=== PATIENT | male | born 1945 | race Caucasian/White ===

== ENCOUNTER 2016-03-11 12:30 | Emergency (ER) | payer OTHER ==
[2016-03-11] MEDS ORDERED: Ibuprofen TAB* 600 MG PO ONE (13:14)
[2016-03-11] MEDS ORDERED: Tetan/Diph/Pertus SYR(Tdap)* 0.5 ML SYR(BOOSTRIX) use SYR IM ONE (13:24)
--- NOTE | 2016-03-11 13:51 | RAD ---
INDICATION: Laceration at level of head of second metacarpal. Assess for retained glass foreign body. COMPARISON: July 24, 2011 TECHNIQUE: AP, lateral, and oblique views LEFT hand. REPORT: Soft tissue swelling most prominent at the second finger. No conspicuous foreign body or subcutaneous emphysema evident. Negative for fracture or dislocation. 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 Subchondral cyst at the distal pole of the scaphoid. IMPRESSION: Soft tissue swelling most prominent at the second finger. No conspicuous foreign body evident.
[2016-03-11] MEDS ORDERED: Clindamycin CAP* 150 MG PO ONE (15:14)
[2016-03-11 15:38] VITALS: BP 129/87
--- NOTE | 2016-03-11 16:03 | ED ---
Laceration/Wound HPI - HPI Summary HPI Summary: Patient was trying to remove a rubber cork from an old wine bottle he wanted to recycle when the neck snapped and he cut the top of his left index finger at the proximal knuckle. He controlled bleeding with a bandage and noticed that he was now unable to extend the left index finger at the CMC joint. He has sensation in the joint. His tetanus is not up to date. - History of Current Complaint Stated Complaint: LT FINGER LAC Time Seen by Provider: 03/11/16 12:41 Hx Obtained From: Patient Mechanism of Injury: Sharp/Blunt Trauma Onset/Duration: Sudden Onset Aggravating: Movement Alleviating: Nothing Timing: Constant Onset Severity: Severe Current Severity: Mild Pain Intensity: 0 Pain Scale Used: 0-10 Numeric Associated Signs & Symptoms: Pain Related Hx: Dominant Hand (Right) - Allergy/Home Medications Allergies/Adverse Reactions: Allergies Allergy/AdvReac Type Severity Reaction Status Date / Time Aspirin Allergy Severe hives, rash Verified 02/22/14 05:34 Penicillins [PCN] Allergy Severe hives, rash Verified 02/22/14 05:34 Acetaminophen [From Percocet] Allergy Unknown unknown Verified 02/22/14 05:34 reaction Cefazolin Allergy Unknown unknown Verified 02/22/14 05:34 reaction Oxycodone [From Percocet] Allergy Unknown unknown Verified 02/22/14 05:34 reaction Ciprofloxacin [From Cipro] AdvReac Severe tendonitis Verified 02/22/14 05:34 Levofloxacin [From Levaquin] AdvReac Severe tendonitis Verified 02/22/14 05:34 PMH/Surg Hx/FS Hx/Imm Hx Sensory History: Reports: Hx Contacts or Glasses Denies: Hx Hearing Aid Opthamlomology History: Reports: Hx Contacts or Glasses Psychiatric History: Reports: Hx Anxiety - Surgical History Surgery Procedure, Year, and Place: 2011 TURP [facility]. 1984 LEFT FOOT FX [facility] Hx Anesthesia Reactions: No Infectious Disease History: No Infectious Disease History: Denies: Traveled Outside the [place] in Last 30 Days - Family History Known Family History: Positive: Hypertension - Social History Occupation: Employed Full-time Lives: With Family Alcohol Use: Occasionally Alcohol Amount: 3-4/ OCC [facility] Substance Use Type: Reports: None Smoking Status (MU): Light Every Day Tobacco Smoker Type: Cigarettes Amount Used/How Often: 8-10/DAY Length of Time of Smoking/Using Tobacco: 50 YRS Have You Smoked in the Last Year: Yes Cessation Counseling: Patient Advised to Stop Review of Systems Positive: Decreased ROM - extension of left index finger at the CMC joint Positive: Other - 2 cm laceration on dorsum of left 2nd CMC Negative: Paresthesia, Numbness All Other Systems Reviewed And Are Negative: Yes Physical Exam Triage Information Reviewed: Yes Vital Signs On Initial Exam: Initial Vitals Temp Pulse Resp BP Pulse Ox 97.5 F 92 16 142/76 100 03/11/16 12:32 03/11/16 12:32 03/11/16 12:32 03/11/16 12:32 03/11/16 12:32 Vital Signs Reviewed: Yes Appearance: Positive: Well-Appearing, No Pain Distress, Well-Nourished Skin: Positive: Warm, Skin Color Reflects Adequate Perfusion, Dry, Tender - 2 cm laceration on dorsum of left 2nd CMC, Soft Head/Face: Positive: Normal Head/Face Inspection Eyes: Positive: EOMI, CAS, Conjunctiva Clear ENT: Positive: Hearing grossly normal Respiratory/Lung Sounds: Positive: Breath Sounds Present Cardiovascular: Positive: RRR Musculoskeletal: Positive: Limited @ - extension of left index finger at the CMC joint; flexion intact, Pain @ - TTP at dorsum of left second CMC Neurological: Positive: Sensory/Motor Intact, Alert, Oriented to Person Place, Time, NV Bundle Intact Distally Psychiatric: Positive: Affect/Mood Appropriate AVPU Assessment: Alert Procedures - Laceration/Wound Repair 1 Location: upper extremity - left hand Description: Linear Anesthesia: Local, 2.0%, Lido Length, Depth and Shape: 2 cm long, 3mm wide, 3 mm deep Betadine Prep?: No Irrigated w/ Saline (ccs): 200 Laceration/Wound Explored: clean Closure: Single Layer Debridement: minimal Suture Type: Nylon - 5.0 Number of Sutures: 7 Layer Closure?: No Sterile Dressing Applied?: Yes Diagnostics - Vital Signs Vital Signs Temp Pulse Resp BP Pulse Ox 03/11/16 15:37 18 129/87 03/11/16 12:32 97.5 F 92 16 142/76 100 - Laboratory Lab Statement: Any lab studies that have been ordered have been reviewed, and results considered in the medical decision making process. - Radiology No standard instances Xray Interpretation: No Acute Changes Radiology Interpretation Completed By: Radiologist Laceration Repair Course/Dx - Differential Dx Differental Diagnoses: Abrasion, Avulsion, Cellulitis, Dehiscence, Hematoma, Laceration, Puncture Wound - Clinical Impression Provider Diagnoses: Finger laceration involving tendon - Physician Notifications Discussed Care Of Patient With: Dr. Mccoy with orthopedics Time Discussed With Above Provider: 15:15 Instructed by Provider To: Have Pt Call For Appt. Discharge - Discharge Plan Condition: Stable Disposition: HOME Prescriptions: Clindamycin CAP* [Cleocin 150 MG CAP*] 150 mg PO Q6H #56 cap Patient Education Materials: Finger Laceration (ED), Tendon Laceration (ED) Referrals: Earnest Pierce MD [Primary Care Provider] - Bhargavi Mccoy MD [Medical Doctor] - Additional Instructions: Keep your dressing clean, dry and in place for the next 24 hours. You may then remove and shower. Pat dry and cover with a clean, dry band-aid if you are going to be in a "dirty" environment, otherwise it can remain open to air. Do not soak the wound in any body of water until the sutures are removed. Elevate the hand above your heart and use Ibuprofen 600mg three times daily with meals for the next 5-7 days to reduce pain and swelling. Keep your splint on your hand at all times and take your antibiotic until it is completely gone. Follow- up with your primary care provider or return to the emergency department in 10- 12 days for suture removal. Return to the emergency department sooner if your symptoms worsen. Call Dr. Mccoy's office to be seen Monday. I spoke with her and she is expecting you on Monday but you need to set up a time.
== END 2016-03-11 15:37 | disposition home or self-care (01) ==
LOC: ED 12:30
DX: S56.422A Laceration of extensor muscle, fascia and tendon of left index finger at forearm level, initial encounter (principal); W25.XXXA Contact with sharp glass, initial encounter; Y93.9 Activity, unspecified; Y92.9 Unspecified place or not applicable; Y99.9 Unspecified external cause status; F17.210 Nicotine dependence, cigarettes, uncomplicated
CPT/HCPCS: 12001; 90471; 90715; 99282; A9270-GY